=== PATIENT | female | born 1995 | race Caucasian/White ===

== ENCOUNTER 2018-01-10 18:08 | Emergency (ER) | payer OTHER | END 2018-01-10 23:00 | disposition left against medical advice (07) | LOC: FTE 23:00 | DX: M25.571 Pain in right ankle and joints of right foot (principal) | CPT/HCPCS: 99282; Z7502 ==

== ENCOUNTER 2018-07-12 21:37 | Emergency (ER) | payer SELFPAY, OTHER | END 2018-07-13 01:22 | disposition left against medical advice (07) | LOC: FTE 21:37 | DX: Z53.21 Procedure and treatment not carried out due to patient leaving prior to being seen by health care provider (principal) ==